=== PATIENT | male | born 1970 | race Caucasian/White ===

== ENCOUNTER 2017-07-21 21:00 | Emergency (ER) | payer OTHER ==
[~2017-07-21] VITALS: Ht 177.8 cm; Wt 81.6 kg
[2017-07-21] MEDS ORDERED: LOTREL 5-10 MG1 CAP (21:12)
[2017-07-22] MEDS ORDERED: METOCLOPRAMIDE10 M1 PO (02:48)
[2017-07-22] MEDS ORDERED: PEPCID40 MG PO (02:48)
[2017-07-22] MEDS ORDERED: PROTONIX40 MG PO (02:48)
== END 2017-07-22 02:46 | disposition home or self-care (01) ==
LOC: ER 21:00
DX: K21.9 Gastro-esophageal reflux disease without esophagitis (principal)

== ENCOUNTER 2020-06-10 22:15 | Emergency (ER) | payer OTHER ==
[~2020-06-10] VITALS: Ht 177.8 cm; Wt 86.2 kg
[~2020-06-10 22:15] MED LIST: LOTREL 5-10 MG1 CAP; METOCLOPRAMIDE10 M1 PO; PEPCID40 MG PO; PROTONIX40 MG PO
[2020-06-11] MEDS ORDERED: CARAFATE1 GM PO (04:28)
[2020-06-11] MEDS ORDERED: PROTONIX20 MG PO (04:28)
[2020-06-11] MEDS ORDERED: PEPCID AC20 MG PO (04:28)
== END 2020-06-11 10:38 | disposition home or self-care (01) ==
LOC: ER 22:15
DX: R10.13 Epigastric pain (principal)

== ENCOUNTER 2021-12-28 21:11 | Emergency (ER) | payer OTHER ==
[~2021-12-28] VITALS: Ht 177.8 cm; Wt 86.2 kg
[~2021-12-28 21:11] MED LIST changes: +CARAFATE1 GM PO; +PEPCID AC20 MG PO; +PROTONIX20 MG PO
[2021-12-28] MEDS ORDERED: KAPSPARGO SPRIN25 MG PO (21:22)
[2021-12-28] MEDS ORDERED: AZOR 5-20 MG T1 EACH PO (21:23)
== END 2021-12-29 00:46 | disposition home or self-care (01) ==
LOC: ER 21:11 → EDSEX 21:14 → ER 21:14
DX: K52.9 Noninfective gastroenteritis and colitis, unspecified (principal); I10 Essential (primary) hypertension

== ENCOUNTER 2022-05-09 18:24 | Emergency (ER) | payer OTHER ==
[~2022-05-09] VITALS: Ht 172.7 cm; Wt 86.2 kg
[~2022-05-09 18:24] MED LIST changes: +AZOR 5-20 MG T1 EACH PO; +KAPSPARGO SPRIN25 MG PO
== END 2022-05-09 23:02 | disposition home or self-care (01) ==
LOC: ER 18:24
DX: R51.9 Headache, unspecified (principal); I10 Essential (primary) hypertension

== ENCOUNTER 2022-10-20 09:04 | Emergency (ER) | payer OTHER ==
[~2022-10-20] VITALS: Ht 175.3 cm; Wt 86.2 kg
[2022-10-20] MEDS ORDERED: PRILOSEC OTC20 MG PO (09:21)
== END 2022-10-20 14:22 | disposition home or self-care (01) ==
LOC: ER 09:04
DX: K52.9 Noninfective gastroenteritis and colitis, unspecified (principal)